=== PATIENT | male | born 1960 | race Caucasian/White ===

== ENCOUNTER 2018-11-13 18:03 | Emergency (ER) | payer SELFPAY ==
--- NOTE | 2018-11-13 20:31 | EDPHYS ---
Physician Documentation [facility] Name: Prasad Gomez Age: 58 yrs Sex: Male : 1960 Arrival Date: 11/13/2018 Time: 18:09 Bed 10 Private MD: ED Physician Marco Perez HPI: 11/13 20:30 This 58 yrs old Male presents to ER via Ambulatory with complaints of pm1 Shingles. 20:30 The patient's rash thought to be caused by shingles. The rash is located on the left pm1 foot and right foot and left hand and right hand. The rash can be described as vesicular, looks like his prior shingles but has improved. Onset: The symptoms/episode began/occurred 2 week(s) ago. Associated signs and symptoms: Pertinent positives: Pain Pertinent negatives: fever, itching. Severity of symptoms: in the emergency department the symptoms have improved. The patient has not recently seen a physician. Patient's blisters have resolved but has some pain to bilateral toes. Historical: - Allergies: 18:11 No Known Allergies; hj - PMHx: 18:11 None; hj - PSHx: 18:11 None; hj - Immunization history:: Adult Immunizations up to date. - Social history:: Smoking status: Patient/guardian denies using tobacco. - Ebola Screening: : No symptoms or risks identified at this time. ROS: 20:30 Constitutional: Negative for fever, chills, and weight loss, Eyes: Negative for injury, pm1 pain, redness, and discharge, ENT: Negative for injury, pain, and discharge, Neck: Negative for injury, pain, and swelling, Cardiovascular: Negative for chest pain, palpitations, and edema, Respiratory: Negative for shortness of breath, cough, wheezing, and pleuritic chest pain, Abdomen/GI: Negative for abdominal pain, nausea, vomiting, diarrhea, and constipation, Back: Negative for injury and pain, : Negative for injury, bleeding, discharge, and swelling, MS/Extremity: Negative for injury and deformity. 20:30 Neuro: Negative for headache, weakness, numbness, tingling, and seizure. 20:30 Skin: Positive for rash. Exam: 20:30 Constitutional: This is a well developed, well nourished patient who is awake, alert, pm1 and in no acute distress. Head/Face: Normocephalic, atraumatic. Neck: Trachea midline, no thyromegaly or masses palpated, and no cervical lymphadenopathy. Supple, full range of motion without nuchal rigidity, or vertebral point tenderness. No Meningismus. Chest/axilla: Normal chest wall appearance and motion. Nontender with no deformity. No lesions are appreciated. Cardiovascular: Regular rate and rhythm with a normal S1 and S2. No gallops, murmurs, or rubs. Normal PMI, no JVD. No pulse deficits. Respiratory: Lungs have equal breath sounds bilaterally, clear to auscultation and percussion. No rales, rhonchi or wheezes noted. No increased work of breathing, no retractions or nasal flaring. Abdomen/GI: Soft, non-tender, with normal bowel sounds. No distension or tympany. No guarding or rebound. No evidence of tenderness throughout. Back: No spinal tenderness. No costovertebral tenderness. Full range of motion. 20:30 Skin: Warm, dry with normal turgor. Normal color with no rashes, no lesions, and no evidence of cellulitis. MS/ Extremity: Pulses equal, no cyanosis. Neurovascular intact. Full, normal range of motion. 20:30 Neuro: Orientation: is normal, Motor: is normal, moves all fours. Vital Signs: 18:11 BP 158 / 100; Pulse 100; Resp 18; Temp 98.3(O); Pulse Ox 100% on R/A; Weight 99.79 kg; hj Height 5 ft. 10 in. (177.80 cm); Pain 7/10; 18:11 Body Mass Index 31.57 (99.79 kg, 177.80 cm) MDM: 20:10 Patient medically screened. pm1 20:30 Data reviewed: vital signs. Data interpreted: Pulse oximetry: on room air is 100 %. pm1 Interpretation: normal. Counseling: I had a detailed discussion with the patient and/or guardian regarding: the historical points, exam findings, and any diagnostic results supporting the discharge/admit diagnosis, the need for outpatient follow up, to return to the emergency department if symptoms worsen or persist or if there are any questions or concerns that arise at home. Administered Medications: No medications were administered Disposition: 11/14 09:06 Co-signature as Attending Physician, Marco Perez MD I agree with the assessment and michelle plan of care. Disposition: 11/13/18 20:31 Discharged to Home. Impression: Rash and other nonspecific skin eruption. - Condition is Stable. - Discharge Instructions: Herpetic Kole, Rash. - Prescriptions for Tylenol- Codeine #3 300-30 mg Oral Tablet - take 2 tablets by ORAL route every 6 hours As needed; 20 tablet. Valtrex 1 g Oral Tablet - take 1 tablet by ORAL route every 8 hours for 7 days; 21 tablet. - Work release form, Medication Reconciliation Form, Thank You Letter, Antibiotic Education, Prescription Opioid Use form. - Follow up: Emergency Department; When: As needed; Reason: Worsening of condition. Follow up: Private Physician; When: 2 - 3 days; Reason: Recheck today's complaints, Continuance of care, Re-evaluation by your physician. - Problem is new. - Symptoms have improved. Signatures: Marco Perez MD MD cha Pena, Laura RN RN lp1 Kyle Nixon RN RN Oliverio Vidal, [employer] pm1 Corrections: (The following items were deleted from the chart) 11/13 20:40 20:31 11/13/2018 20:31 Discharged to Home. Impression: Rash and other nonspecific skin lp1 eruption. Condition is Stable. Forms are Medication Reconciliation Form, Thank You Letter, Antibiotic Education, Prescription Opioid Use. Follow up: Emergency Department; When: As needed; Reason: Worsening of condition. Follow up: Private Physician; When: 2 - 3 days; Reason: Recheck today's complaints, Continuance of care, Re-evaluation by your physician. Problem is new. Symptoms have improved. pm1
--- NOTE | 2018-11-13 20:31 | ER ---
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 Transition of care: patient was not received from another setting of care. Onset of symptoms was November 13, 2018. Risk Assessment: Do you want to hurt yourself or someone else? Patient reports no desire to harm self or others. Initial Sepsis Screen: Does the patient meet any 2 criteria? No. Patient's initial sepsis screen is negative. Does the patient have a suspected source of infection? No. Patient's initial sepsis screen is negative. Care prior to arrival: None. 18:09 Method Of Arrival: Ambulatory 18:09 Acuity: CANDACE 4 hj Historical: - Allergies: 18:11 No Known Allergies; hj - PMHx: 18:11 None; hj - PSHx: 18:11 None; hj - Immunization history:: Adult Immunizations up to date. - Social history:: Smoking status: Patient/guardian denies using tobacco. - Ebola Screening: : No symptoms or risks identified at this time. Screenin:58 Abuse screen: Denies threats or abuse. Denies injuries from another. Nutritional lp1 screening: No deficits noted. Tuberculosis screening: No symptoms or risk factors identified. Fall Risk None identified. Assessment: 19:57 General: Appears in no apparent distress. Behavior is appropriate for age. Pain: lp1 Complains of pain in right hand, left hand, right foot and left foot. Neuro: Level of Consciousness is awake, alert, obeys commands. Cardiovascular: Patient's skin is warm and dry. Respiratory: No deficits noted. GI: No deficits noted. : No deficits noted. EENT: No deficits noted. Derm: Skin is intact, Patient states burning to hands and feet. Musculoskeletal: No deficits noted. Vital Signs: 18:11 BP 158 / 100; Pulse 100; Resp 18; Temp 98.3(O); Pulse Ox 100% on R/A; Weight 99.79 kg; hj Height 5 ft. 10 in. (177.80 cm); Pain 7/10; 18:11 Body Mass Index 31.57 (99.79 kg, 177.80 cm) ED Course: 18:09 Patient arrived in ED. mr 18:11 Triage completed. hj 18:11 Arm band placed on right wrist. hj 19:25 Oliverio Vidal NP is PHCP. pm1 19:25 Marco Perez MD is Attending Physician. pm1 19:28 Viridiana Vieyra, RN is Primary Nurse. lp1 19:59 Patient has correct armband on for positive identification. lp1 19:59 No provider procedures requiring assistance completed. lp1 20:39 Patient did not have IV access during this emergency room visit. lp1 Administered Medications: No medications were administered Outcome: 20:31 Discharge ordered by MD. pm1 20:39 Discharged to home ambulatory. lp1 20:39 Condition: good 20:39 Discharge instructions given to patient, Instructed on discharge instructions, follow up and referral plans. medication usage, Demonstrated understanding of instructions, follow-up care, medications, Prescriptions given X 2. 20:40 Patient left the ED. lp1 Signatures: Selam Uriarte mr Viridiana Vieyra, RN RN lp1 Kyle Nixon RN RN Oliverio Vidal NP HOSPITALITY SERVICES MANAGER pm1 Corrections: (The following items were deleted from the chart) 18:13 18:09 Presenting complaint: Patient states: 5 years ago i got shingles on my R hj shoulders; 2 weeks, i broke up with shingles on my hands and feet; denies taking meds FIXED ROUTE BUS OPERATOR: hj
== END 2018-11-13 20:40 | disposition home or self-care (01) ==
LOC: ER 18:03
DX: R21 Rash and other nonspecific skin eruption (principal)
CPT/HCPCS: 99282

== ENCOUNTER 2019-02-02 18:02 | Emergency (ER) | payer SELFPAY ==
[2019-02-02] MEDS ORDERED: SMZ./TMP. 800/160 MG TABLET ONE (20:28)
[2019-02-02] MEDS ORDERED: DOXYCYCLINE 100 MG CAP PO ONE (20:29)
[2019-02-02] MEDS ORDERED: MUPIROCIN 2% OINT 22GM TUBE TOP ONE (20:29)
--- NOTE | 2019-02-02 20:32 | ER ---
Nurse's Notes [facility] Name: Prasad Gomez Age: 58 yrs Sex: Male : 1960 Arrival Date: 02/02/2019 Time: 18:03 Bed 15 Private MD: Diagnosis: Cutaneous abscess of groin-drainage Presentation: 02/02 18:19 Presenting complaint: Patient states: "I had what I thought was a bug bite on my aj1 scrotum about a week ago and its gotten worse and worse. The last few days its gotten really bad and now I have a rash in my crotch area too" Reports clear and blood tinged drainage. Transition of care: patient was not received from another setting of care. Onset of symptoms was January 2019. Risk Assessment: Do you want to hurt yourself or someone else? Patient reports no desire to harm self or others. Initial Sepsis Screen: Does the patient meet any 2 criteria? No. Patient's initial sepsis screen is negative. Does the patient have a suspected source of infection? No. Patient's initial sepsis screen is negative. Care prior to arrival: None. 18:19 Method Of Arrival: Ambulatory [facility] 18:19 Acuity: CANDACE 3 aj1 Triage Assessment: 18:20 General: Appears in no apparent distress. comfortable, Behavior is calm, cooperative, aj1 appropriate for age. Pain: Complains of pain in pelvis Pain currently is 5 out of 10 on a pain scale. at worst was 10 out of 10 on a pain scale. Neuro: Level of Consciousness is awake, alert, obeys commands. Cardiovascular: Patient's skin is warm and dry. Respiratory: Airway is patent Respiratory effort is even, unlabored, Respiratory pattern is regular, symmetrical. Historical: - Allergies: 18:20 No Known Allergies; aj1 - Home Meds: 18:20 None [Active]; aj1 - PMHx: 18:20 None; aj1 - PSHx: 18:20 None; aj1 - Immunization history:: Flu vaccine is not up to date. - Social history:: Smoking status: Patient uses tobacco products, smokes one pack cigarettes per day. - Ebola Screening: : Patient denies travel to an Ebola-affected area in the 21 days before illness onset. - Family history:: not pertinent. Screenin:45 Abuse screen: Denies threats or abuse. Nutritional screening: No deficits noted. jb4 Tuberculosis screening: No symptoms or risk factors identified. Fall Risk None identified. Assessment: 19:41 General: Appears in no apparent distress. uncomfortable, Behavior is cooperative, jb4 anxious. Pain: Complains of pain in groin Pain does not radiate. Pain currently is 8 out of 10 on a pain scale. Neuro: Level of Consciousness is awake, alert, obeys commands, Oriented to person, place, time, situation. Cardiovascular: Patient's skin is warm and dry. Respiratory: Airway is patent Respiratory effort is even, unlabored, Respiratory pattern is regular, symmetrical. GI: No deficits noted. No signs and/or symptoms were reported involving the gastrointestinal system. : No deficits noted. No signs and/or symptoms were reported regarding the genitourinary system. EENT: No deficits noted. No signs and/or symptoms were reported regarding the EENT system. Derm: Skin has lesions on The right side of the scrotum. Rash noted that is red, raised, on medial aspect of right thigh Abscess located on right testicle. Musculoskeletal: Circulation, motion, and sensation intact. Range of motion: intact in all extremities. 20:52 Reassessment: Patient appears in no apparent distress at this time. Patient and/or jb4 family updated on plan of care and expected duration. Pain level reassessed. Patient is alert, oriented x 3, equal unlabored respirations, skin warm/dry/pink. Patient states feeling better. Vital Signs: 18:20 BP 141 / 102; Pulse 85; Resp 18; Temp 97.9; Pulse Ox 98% on R/A; Weight 95.25 kg (R); aj1 Height 5 ft. 9 in. (175.26 cm) (R); Pain 5/10; 21:00 BP 135 / 95; Pulse 86; Resp 16; Pulse Ox 98% on R/A; jb4 18:20 Body Mass Index 31.01 (95.25 kg, 175.26 cm) aj ED Course: 18:03 Patient arrived in ED. as 18:20 Triage completed. aj1 18:20 Arm band placed on Patient placed in waiting room, Patient notified of wait time. aj1 19:21 Prasad Arrieta RN is Primary Nurse. jb4 19:33 Marco Perez MD is Attending Physician. michelle 19:45 Patient has correct armband on for positive identification. Placed in gown. Bed in low jb4 position. Call light in reach. Side rails up X 1. Pulse ox on. NIBP on. 20:05 Inserted saline lock: 20 gauge in right antecubital area, using aseptic technique. jb4 Blood collected. 20:25 Assist provider with I \\T\\ D: of an abscess on right side of the scrotum Performed by whitney Perez MD Patient tolerated well. 21:00 IV discontinued, intact, bleeding controlled, No redness/swelling at site. Pressure jb4 dressing applied. Administered Medications: 20:36 Drug: Doxycycline 200 mg Route: PO; jb4 20:37 Follow up: Response: Medication administered at discharge. jb4 20:36 Drug: Bactrim (160 mg-800 mg (DS) 1 tablet Route: PO; jb4 20:37 Follow up: Response: No adverse reaction; Medication administered at discharge. jb4 20:36 Drug: Bactroban Ointment 2 % 1 application Route: Topical; Site: wound; jb4 Point of Care Testing: Blood Glucose: 20:23 Blood Glucose: 106 mg/dL; oe Ranges: Outcome: 20:32 Discharge ordered by . [facility] 21:02 Discharged to home ambulatory. jb4 21:02 Condition: stable 21:02 Discharge instructions given to patient, Instructed on discharge instructions, follow up and referral plans. medication usage, Demonstrated understanding of instructions, follow-up care, medications, Prescriptions given X 5 21:02 Patient left the ED. jb4 Signatures: Linda Guzman, JONO RN aj1 Marco Perez MD MD cha Martinez, Amelia as Bryson, James, RN RN jb4 Mukul Oquendo oe
--- NOTE | 2019-02-02 20:33 | EDPHYS ---
Physician Documentation [facility] Name: Prasad Gomez Age: 58 yrs Sex: Male : 1960 Arrival Date: 02/02/2019 Time: 18:03 Bed 15 Private MD: ED Physician Marco Perez HPI: 02/02 20:24 This 58 yrs old Male presents to ER via Ambulatory with complaints of michelle Testicular Problem. 20:24 The patient presents with abrasion, swelling, tenderness, that is mild, that is michelle moderate. Onset: The symptoms/episode began/occurred 5 day(s) ago. Modifying factors: The symptoms are alleviated by remaining still, the symptoms are aggravated by movement. Associated signs and symptoms: The patient has no apparent associated signs or symptoms. Severity of symptoms: At their worst the symptoms were mild, in the emergency department the symptoms are unchanged. The patient has not experienced similar symptoms in the past. Historical: - Allergies: 18:20 No Known Allergies; aj1 - Home Meds: 18:20 None [Active]; aj1 - PMHx: 18:20 None; aj1 - PSHx: 18:20 None; aj1 - Immunization history:: Flu vaccine is not up to date. - Social history:: Smoking status: Patient uses tobacco products, smokes one pack cigarettes per day. - Ebola Screening: : Patient denies travel to an Ebola-affected area in the 21 days before illness onset. - Family history:: not pertinent. ROS: 20:24 Constitutional: Negative for fever, chills, and weight loss, Eyes: Negative for injury, michelle pain, redness, and discharge, ENT: Negative for injury, pain, and discharge, Neck: Negative for injury, pain, and swelling, Cardiovascular: Negative for chest pain, palpitations, and edema, Respiratory: Negative for shortness of breath, cough, wheezing, and pleuritic chest pain, Abdomen/GI: Negative for abdominal pain, nausea, vomiting, diarrhea, and constipation, Back: Negative for injury and pain, : Negative for injury, bleeding, discharge, and swelling, MS/Extremity: Negative for injury and deformity, Neuro: Negative for headache, weakness, numbness, tingling, and seizure. 20:24 Skin: Positive for abrasion(s), abscess, cellulitis, erythema, swelling, spontaneously draining. Exam: 20:24 Constitutional: This is a well developed, well nourished patient who is awake, alert, michelle and in no acute distress. Head/Face: Normocephalic, atraumatic. Eyes: Pupils equal round and reactive to light, extra-ocular motions intact. Lids and lashes normal. Conjunctiva and sclera are non-icteric and not injected. Cornea within normal limits. Periorbital areas with no swelling, redness, or edema. ENT: Nares patent. No nasal discharge, no septal abnormalities noted. Tympanic membranes are normal and external auditory canals are clear. Oropharynx with no redness, swelling, or masses, exudates, or evidence of obstruction, uvula midline. Mucous membranes moist. Neck: Trachea midline, no thyromegaly or masses palpated, and no cervical lymphadenopathy. Supple, full range of motion without nuchal rigidity, or vertebral point tenderness. No Meningismus. Chest/axilla: Normal chest wall appearance and motion. Nontender with no deformity. No lesions are appreciated. Cardiovascular: Regular rate and rhythm with a normal S1 and S2. No gallops, murmurs, or rubs. Normal PMI, no JVD. No pulse deficits. Respiratory: Lungs have equal breath sounds bilaterally, clear to auscultation and percussion. No rales, rhonchi or wheezes noted. No increased work of breathing, no retractions or nasal flaring. Abdomen/GI: Soft, non-tender, with normal bowel sounds. No distension or tympany. No guarding or rebound. No evidence of tenderness throughout. Back: No spinal tenderness. No costovertebral tenderness. Full range of motion. Male : Normal genitalia with no discharge or lesions. MS/ Extremity: Pulses equal, no cyanosis. Neurovascular intact. Full, normal range of motion. Neuro: Awake and alert, GCS 15, oriented to person, place, time, and situation. Cranial nerves II-XII grossly intact. Motor strength 5/5 in all extremities. Sensory grossly intact. Cerebellar exam normal. Normal gait. Psych: Awake, alert, with orientation to person, place and time. Behavior, mood, and affect are within normal limits. 20:24 Skin: abscess, that is small, of the perineum, with drainage, with fluctuance, with induration, drainage, cellulitis, that is minimal, induration, that is mild is noted. Vital Signs: 18:20 BP 141 / 102; Pulse 85; Resp 18; Temp 97.9; Pulse Ox 98% on R/A; Weight 95.25 kg (R); aj1 Height 5 ft. 9 in. (175.26 cm) (R); Pain 5/10; 21:00 BP 135 / 95; Pulse 86; Resp 16; Pulse Ox 98% on R/A; jb4 18:20 Body Mass Index 31.01 (95.25 kg, 175.26 cm) [facility] MDM: 19:33 Patient medically screened. [facility] 20:24 Data reviewed: vital signs, nurses notes. [facility] 02/02 20:20 Order name: Urine Dipstick--Ancillary (enter results) [facility] 02/02 20:24 Order name: Glucose, Ancillary Testing EDMS Administered Medications: 20:36 Drug: Doxycycline 200 mg Route: PO; jb4 20:37 Follow up: Response: Medication administered at discharge. jb4 20:36 Drug: Bactrim (160 mg-800 mg (DS) 1 tablet Route: PO; jb4 20:37 Follow up: Response: No adverse reaction; Medication administered at discharge. jb4 20:36 Drug: Bactroban Ointment 2 % 1 application Route: Topical; Site: wound; jb4 Point of Care Testing: Blood Glucose: 20:23 Blood Glucose: 106 mg/dL; oe Ranges: Critical Glucose Levels:Adult <50 mg/dl or >400 mg/dl <40 mg/dl or >180 mg/dl Disposition: 02/02/19 20:32 Discharged to Home. Impression: Cutaneous abscess of groin - drainage. - Condition is Stable. - Discharge Instructions: Skin Abscess, Incision and Drainage, Skin Abscess, [id number], Incision and Drainage, Care After. - Prescriptions for Tylenol- Codeine #3 300-30 mg Oral Tablet - take 2 tablet by ORAL route every 6 hours As needed; 30 tablet. Hydrocortisone 0.5 % Topical Cream - apply 1 application by TOPICAL route every 12 hours As needed; 60 gram. Bactrim DS 800- 160 mg Oral Tablet - take 1 tablet by ORAL route every 12 hours for 10 days; 20 tablet. Doxycycline Monohydrate 100 mg Oral Tablet - take 1 tablet by ORAL route every 12 hours for 10 days; 20 tablet. Bactroban 2 % Topical Ointment - Apply to affected area 1 application by TOPICAL route every 12 hours; 30 gram. - Medication Reconciliation Form, Thank You Letter, Antibiotic Education, Prescription Opioid Use, Work release form form. - Follow up: Private Physician; When: 2 - 3 days; Reason: Recheck today's complaints, Continuance of care, Re-evaluation by your physician. - Problem is new. - Symptoms have improved. Signatures: Dispatcher [employer] EDLinda Vital RN RN aj1 Marco Perez MD MD cha Bryson, James, RN RN jb4 Corrections: (The following items were deleted from the chart) 21:02 20:32 02/02/2019 20:32 Discharged to Home. Impression: Cutaneous abscess of groin - jb4 drainage. Condition is Stable. Forms are Medication Reconciliation Form, Thank You Letter, Antibiotic Education, Prescription Opioid Use. Follow up: Private Physician; When: 2 - 3 days; Reason: Recheck today's complaints, Continuance of care, Re-evaluation by your physician. Problem is new. Symptoms have improved. michelle
[2019-02-02 21:33] LABS: Urine Blood 2+ (NEG); Urine Glucose NEGATIVE (NEG); Urine Protein NEGATIVE (NEG); Urine Specific Gravity 1.025 (1.005-1.030); Urine pH 6.5 (5.0-7.0)
[2019-02-02 22:03] VITALS: TEMP 97.9; O2SAT 98
[2019-02-02 22:05] VITALS: BP 135/95
== END 2019-02-02 21:02 | disposition home or self-care (01) ==
LOC: ER 18:02
PROC: 0J9B0ZZ Drainage of Perineum Subcutaneous Tissue and Fascia, Open Approach (ICD-10-PCS; principal; 2019-02-02)
DX: L02.215 Cutaneous abscess of perineum (principal); Z72.0 Tobacco use
CPT/HCPCS: 81003; 82962; 99284

== ENCOUNTER 2019-06-14 07:12 | Emergency (ER) | payer SELFPAY ==
--- NOTE | 2019-06-14 08:36 | EDPHYS ---
Physician Documentation [facility] Name: Prasad Gomez Age: 58 yrs Sex: Male : 1960 Arrival Date: 06/14/2019 Time: 07:13 Bed 15 Private MD: ED Physician Bola Emerson HPI: 06/14 08:45 This 58 yrs old Male presents to ER via Ambulatory with complaints of Hand snw Problem. 08:45 Onset: The symptoms/episode began/occurred acutely. Associated signs and symptoms: snw Pertinent positives: pt state fingers randomly get pale, left 5th fingertip not healing post injury. Pt states he was working in the yard strenuously. Recent dx of influenza. Modifying factors: The patient symptoms are alleviated by nothing, the patient symptoms are aggravated by nothing. The patient has not experienced similar symptoms in the past. The patient has not recently seen a physician. pt smokes heavily, drinks a lot of coffee. 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 - Coronavirus screen:: The patient has NOT traveled to [place], [place], or [place] in the past 14 days. Proceed with normal triage process as indicated. - Social history:: Smoking status: Patient reports the use of cigarette tobacco products, smokes two packs cigarettes per day. - Ebola Screening: : Patient denies exposure to infectious person Patient denies travel to an Ebola-affected area in the 21 days before illness onset. ROS: 08:45 Constitutional: Negative for fever, chills, and weight loss, Eyes: Negative for injury, snw pain, redness, and discharge, ENT: Negative for injury, pain, and discharge, Neck: Negative for injury, pain, and swelling, Cardiovascular: Negative for chest pain, palpitations, and edema, Respiratory: Negative for shortness of breath, cough, wheezing, and pleuritic chest pain, Abdomen/GI: Negative for abdominal pain, nausea, vomiting, diarrhea, and constipation, Back: Negative for injury and pain, : Negative for injury, bleeding, discharge, and swelling, Skin: Negative for injury, rash, and discoloration, Neuro: Negative for headache, weakness, numbness, tingling, and seizure. 08:45 MS/extremity: Positive for injury or acute deformity, of the left 5th fingertip. Exam: 08:38 Constitutional: This is a well developed, well nourished patient who is awake, alert, snw and in no acute distress. Head/Face: Normocephalic, atraumatic. Eyes: Pupils equal round and reactive to light, extra-ocular motions intact. Lids and lashes normal. Conjunctiva and sclera are non-icteric and not injected. Cornea within normal limits. Periorbital areas with no swelling, redness, or edema. ENT: Nares patent. No nasal discharge, no septal abnormalities noted. Tympanic membranes are normal and external auditory canals are clear. Oropharynx with no redness, swelling, or masses, exudates, or evidence of obstruction, uvula midline. Mucous membranes moist. Neck: Trachea midline, no thyromegaly or masses palpated, and no cervical lymphadenopathy. Supple, full range of motion without nuchal rigidity, or vertebral point tenderness. No Meningismus. Chest/axilla: Normal chest wall appearance and motion. Nontender with no deformity. No lesions are appreciated. Cardiovascular: Regular rate and rhythm with a normal S1 and S2. No gallops, murmurs, or rubs. Normal PMI, no JVD. No pulse deficits. Abdomen/GI: Soft, non-tender, with normal bowel sounds. No distension or tympany. No guarding or rebound. No evidence of tenderness throughout. Back: No spinal tenderness. No costovertebral tenderness. Full range of motion. Neuro: Awake and alert, GCS 15, oriented to person, place, time, and situation. Cranial nerves II-XII grossly intact. Motor strength 5/5 in all extremities. Sensory grossly intact. Cerebellar exam normal. Normal gait. Psych: Awake, alert, with orientation to person, place and time. Behavior, mood, and affect are within normal limits. 08:38 Respiratory: the patient does not display signs of respiratory distress, Respirations: normal, Breath sounds: bronchial sounds, that are moderate, are heard diffusely, + upper airway congestion. wheezin:38 Skin: Appearance: Color: normal in color, fingertips cigarette stained, 5th left fingertip with peeling, mild pallor, no erythema. Vital Signs: 07:34 BP 148 / 88; Pulse 100; Resp 16; Temp 98.2(O); Pulse Ox 100% on R/A; Weight 95.25 kg; ss Height 5 ft. 10 in. (177.80 cm); Pain 5/10; 07:34 Body Mass Index 30.13 (95.25 kg, 177.80 cm) ss MDM: 08:35 Patient medically screened. snw 08:36 Data reviewed: vital signs, nurses notes. Data interpreted: Pulse oximetry: on room air snw is 100 %. Interpretation: normal. Counseling: I had a detailed discussion with the patient and/or guardian regarding: the historical points, exam findings, and any diagnostic results supporting the discharge/admit diagnosis, the presence of at least one elevated blood pressure reading (>120/80) during this emergency department visit, the need for outpatient follow up, to return to the emergency department if symptoms worsen or persist or if there are any questions or concerns that arise at home. Special discussion: Based on the history and exam findings, there is no indication for further emergent testing or inpatient evaluation. I discussed with the patient/guardian the need to see the primary care provider for further evaluation of the symptoms. Administered Medications: 08:52 Drug: Doxycycline 100 mg Route: PO; tw2 09:03 Follow up: Response: No adverse reaction tw2 08:52 Drug: Aspirin 325 mg Route: PO; tw2 09:03 Follow up: Response: No adverse reaction tw2 Disposition: 10:21 Co-signature as Attending Physician, Bola Emerson MD. rn Disposition: 06/14/19 08:35 Discharged to Home. Impression: Poor wound healing, Acute bronchitis. - Condition is Stable. - Discharge Instructions: Acute Bronchitis, Adult, Hypertension, Steps to Quit Smoking, Smoking Hazards, Raynaud Phenomenon, Aspirin and Your Heart, Cough, Adult, Rehydration, Adult. - Prescriptions for Doxycycline Hyclate 100 mg Oral Tablet - take 1 tablet by ORAL route every 12 hours; 20 tablet. - Medication Reconciliation Form, Thank You Letter, Antibiotic Education, Prescription Opioid Use form. - Follow up: Emergency Department; When: As needed; Reason: Worsening of condition. Follow up: Private Physician; When: 2 - 3 days; Reason: Recheck today's complaints, Continuance of care, Re-evaluation by your physician. Signatures: Alice Culver, SHAKE SPLITTER-C SHAKE SPLITTER-Csnw Bola Emerson MD MD rn Smirch, Shelby, RN RN ss Arlette Willingham RN RN tw2 Corrections: (The following items were deleted from the chart) 09:03 08:35 06/14/2019 08:35 Discharged to Home. Impression: Poor wound healing; Acute tw2 bronchitis. Condition is Stable. Forms are Medication Reconciliation Form, Thank You Letter, Antibiotic Education, Prescription Opioid Use. Follow up: Emergency Department; When: As needed; Reason: Worsening of condition. Follow up: Private Physician; When: 2 - 3 days; Reason: Recheck today's complaints, Continuance of care, Re-evaluation by your physician. snw
--- NOTE | 2019-06-14 08:36 | ER ---
Nurse's Notes [facility] Name: Prasad Gomez Age: 58 yrs Sex: Male : 1960 Arrival Date: 06/14/2019 Time: 07:13 Bed 15 Private MD: Diagnosis: Poor wound healing;Acute bronchitis Presentation: 06/14 07:34 Presenting complaint: Patient states: "I did some yard work before [place] and the ss next morning when I woke up the tip of my pinky finger was turning purple. IT started to heal, but now it's coming back and I noticed I've got something on all the fingers.". Transition of care: patient was not received from another setting of care. Onset of symptoms was April 2019. Risk Assessment: Do you want to hurt yourself or someone else? Patient reports no desire to harm self or others. Initial Sepsis Screen: Does the patient meet any 2 criteria? No. Patient's initial sepsis screen is negative. Does the patient have a suspected source of infection? No. Patient's initial sepsis screen is negative. Care prior to arrival: None. 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 - Coronavirus screen:: The patient has NOT traveled to [place], [place], or [place] in the past 14 days. Proceed with normal triage process as indicated. - Social history:: Smoking status: Patient reports the use of cigarette tobacco products, smokes two packs cigarettes per day. - Ebola Screening: : Patient denies exposure to infectious person Patient denies travel to an Ebola-affected area in the 21 days before illness onset. Screenin:49 Abuse screen: Denies threats or abuse. Nutritional screening: No deficits noted. tw2 Tuberculosis screening: No symptoms or risk factors identified. Fall Risk None identified. Assessment: 09:02 Reassessment: Patient appears in no apparent distress at this time. No changes from tw2 previously documented assessment. Patient and/or family updated on plan of care and expected duration. Pain level reassessed. Patient is alert, oriented x 3, equal unlabored respirations, skin warm/dry/pink. Vital Signs: 07:34 BP 148 / 88; Pulse 100; Resp 16; Temp 98.2(O); Pulse Ox 100% on R/A; Weight 95.25 kg; ss Height 5 ft. 10 in. (177.80 cm); Pain 5/10; 07:34 Body Mass Index 30.13 (95.25 kg, 177.80 cm) ED Course: 07:13 Patient arrived in ED. ag5 07:21 Alice Culver [facility]-C [facility]. snw 07:21 Bola Emerson MD is Attending Physician. snw 07:34 Arm band placed on right wrist. 07:36 Triage completed. 08:49 Adult w/ patient. tw2 Administered Medications: 08:52 Drug: Doxycycline 100 mg Route: PO; tw2 09:03 Follow up: Response: No adverse reaction tw2 08:52 Drug: Aspirin 325 mg Route: PO; tw2 09:03 Follow up: Response: No adverse reaction tw2 Outcome: 08:35 Discharge ordered by . snw 09:02 Discharged to home ambulatory. tw2 09:02 Condition: stable 09:02 Discharge instructions given to patient, Instructed on discharge instructions, follow up and referral plans. medication usage, Demonstrated understanding of instructions, follow-up care, medications, Prescriptions given X 1. 09:03 Patient left the ED. tw2 Signatures: Alice Culver FNP-C FNP-Csnw Radha Galvan RN RN Arlette Willingham RN RN tw2 Jerel Duff ag5
[2019-06-14] MEDS ORDERED: DOXYCYCLINE 100 MG CAP PO ONE (08:52)
[2019-06-14] MEDS ORDERED: ASPIRIN EC 325 MG TABLET PO ONE (08:52)
[2019-06-14 15:12] VITALS: BP 148/88; TEMP 98.2; O2SAT 100
== END 2019-06-14 09:03 | disposition home or self-care (01) ==
LOC: ER 07:12
DX: S69.92XA Unspecified injury of left wrist, hand and finger(s), initial encounter (principal); X58.XXXA Exposure to other specified factors, initial encounter; Y93.89 Activity, other specified; Y92.017 Garden or yard in single-family (private) house as the place of occurrence of the external cause; J20.9 Acute bronchitis, unspecified; F17.210 Nicotine dependence, cigarettes, uncomplicated
CPT/HCPCS: 99283